=== PATIENT | female | born 1990 | race African-American/Black ===

== ENCOUNTER 2016-12-04 01:51 | Emergency (ER) | payer OTHER ==
[~2016-12-04] VITALS: Ht 149.9 cm; Wt 57.0 kg
[2016-12-04 02:20] LABS: ANION GAP 11 mmol/L (8-16); CALCIUM, TOTAL 8.6 mg/dL (8.8-10.5); CARBON DIOXIDE 26 mmol/L (22-29); CHLORIDE 103 mmol/L (98-107); CREATININE 0.86 mg/dL (0.60-1.30); GLOMERULAR FILTR. RATE CALC > 60 mL/min (>60); POTASSIUM 3.8 mmol/L (3.5-5.1); SODIUM SERUM 140 mmol/L (136-145); UREA NITROGEN, BLOOD 10 mg/dL (7-18)
[2016-12-04 02:26] LABS: ALANINE AMINOTRANSFERASE 21 U/L (12-78); ALBUMIN 3.9 g/dL (3.4-5.0); ASPARTATE AMINOTRANSFERASE 18 U/L (15-37); BILIRUBIN,TOTAL 0.2 mg/dL (0.1-1.0); TOTAL PROTEIN, SERUM 7.7 g/dL (6.4-8.2)
[2016-12-04 02:40] LABS: BASOPHILS % (AUTO) 1.1 % (0.0-2.0); EOSINOPHILS % (AUTO) 2.9 % (1.0-6.0); HEMATOCRIT 40.2 % (36-46); HEMOGLOBIN 13.2 g/dL (12.0-16.0); LYMPHOCYTES % (AUTO) 36.6 % (22.0-44.0); MEAN CORPUSCULAR HGB CONC 32.8 G/dL (31.0-37.0); MEAN CORPUSCULAR VOLUME 91 fL (80-100); MONOCYTES # (AUTO) 0.5 K/uL (0.1-1.0); MONOCYTES % (AUTO) 9.7 % (2.0-9.0); NEUTROPHILS # (AUTO) 2.8 K/uL (1.8-7.7); NEUTROPHILS % (AUTO) 49.7 % (40.0-70.0); PLATELET COUNT (AUTO) 255 K/uL (150-450); RED CELL DISTRIBUTION WIDTH 13.8 % (11.5-14.5); WHITE BLOOD COUNT (AUTO) 5.6 K/uL (4.5-11.0)
[2016-12-04 02:49] LABS: SALICYLATE < 2.8 mg/dL (2.8-20.0)
[2016-12-04 03:06] LABS: ACETAMINOPHEN < 2 mcg/mL (10-30)
[2016-12-04 03:15] VITALS: BP 126/83
== END 2016-12-04 03:19 | disposition home or self-care (01) ==
LOC: EMS 01:53
DX: F10.129 Alcohol abuse with intoxication, unspecified (principal); F69 Unspecified disorder of adult personality and behavior; F17.210 Nicotine dependence, cigarettes, uncomplicated; Y90.6 Blood alcohol level of 120-199 mg/100 ml
CPT/HCPCS: 36415; 80053; 84703; 85025; 99284; 99406; G0480; G0481

== ENCOUNTER 2020-07-27 20:21 | Emergency (ER) | payer OTHER ==
[~2020-07-27] VITALS: Ht 149.9 cm; Wt 58.6 kg
[2020-07-27] MEDS ORDERED: ACETAMINOPHEN 500 MG TABLET PO ONE (23:30)
[2020-07-27] MEDS ORDERED: AMOX TR/POT CLAV 875 MG/125 MG TABLET PO ONE (23:30)
[2020-07-27 23:53] VITALS: BP 140/80
== END 2020-07-28 00:04 | disposition home or self-care (01) ==
LOC: EMS 20:21
DX: N63.0 Unspecified lump in unspecified breast (principal)

== ENCOUNTER 2023-11-12 00:06 | Emergency (ER) | payer OTHER ==
[~2023-11-12] VITALS: Ht 149.9 cm; Wt 61.0 kg
[2023-11-12 00:16] VITALS: TEMP 98
[2023-11-12 00:49] LABS: BASOPHILS % (AUTO) 1.1 % (0.0-2.0); EOSINOPHILS % (AUTO) 1.3 % (1.0-6.0); HEMATOCRIT 35.1 % (36-46); HEMOGLOBIN 11.8 g/dL (12.0-16.0); LYMPHOCYTES # (AUTO) 2.5 K/uL (1.0-4.8); LYMPHOCYTES % (AUTO) 36.6 % (22.0-44.0); MEAN CORPUSCULAR HEMOGLOBIN 30.4 pg (26.0-34.0); MEAN CORPUSCULAR HGB CONC 33.5 G/dL (31.0-37.0); MEAN CORPUSCULAR VOLUME 91 fL (80-100); MONOCYTES # (AUTO) 0.5 K/uL (0.1-1.0); MONOCYTES % (AUTO) 7.8 % (2.0-9.0); NEUTROPHILS # (AUTO) 3.7 K/uL (1.8-7.7); NEUTROPHILS % (AUTO) 53.2 % (40.0-70.0); PLATELET COUNT (AUTO) 232 K/uL (150-450); RED BLOOD CELL COUNT(AUTO) 3.86 MIL/uL (4.00-5.20); RED CELL DISTRIBUTION WIDTH 14.3 % (11.5-14.5); WHITE BLOOD COUNT (AUTO) 6.9 K/uL (4.5-11.0)
[2023-11-12 00:57] LABS: ANION GAP 17 mmol/L (8-16); CALCIUM, TOTAL 8.3 mg/dL (8.8-10.5); CARBON DIOXIDE 21 mmol/L (22-29); CHLORIDE 101 mmol/L (98-107); CREATININE 0.77 mg/dL (0.60-1.30); GLOMERULAR FILTR. RATE CALC > 60 mL/min (>60); GLUCOSE,RANDOM 107 mg/dL (70-110); SODIUM SERUM 139 mmol/L (136-145); UREA NITROGEN, BLOOD 12 mg/dL (7-18)
[2023-11-12 01:08] LABS: ALANINE AMINOTRANSFERASE 12 U/L (12-78); ALBUMIN 3.8 g/dL (3.4-5.0); ALKALINE PHOSPHATASE 65 U/L (46-116); ASPARTATE AMINOTRANSFERASE 21 U/L (15-37); BILIRUBIN,TOTAL 0.4 mg/dL (0.1-1.0); HCG,QUANTITATIVE < 1 mIU/mL (0-6); TOTAL PROTEIN, SERUM 7.4 g/dL (6.4-8.2)
[2023-11-12] MEDS: ACETAMINOPHEN 325 MG TABLET PO ONE (01:11)
[2023-11-12 01:12] LABS: TROPONIN I-HIGH SENSITIVITY 4 ng/L (<51)
[2023-11-12] MEDS ORDERED: AMLO5TAB66 PO ×2 (01:53→02:38)
[2023-11-12] MEDS: AmLODIPine BESYLATE 5 MG TABLET PO ONE (02:05)
[2023-11-12] MEDS: KETOROLAC TROMETHAMINE 30 MG/ML VIAL IVP ONE (02:05)
[2023-11-12] MEDS: POTASSIUM CHLORIDE 20 MEQ ER TABLET PO ONE (02:05)
[2023-11-12 02:55] VITALS: BP 161/108; PULSE 78; RESP 16
== END 2023-11-12 02:58 | disposition home or self-care (01) ==
LOC: EMS 00:07
DX: E87.6 Hypokalemia (principal); F10.129 Alcohol abuse with intoxication, unspecified; R07.89 Other chest pain; Z98.890 Other specified postprocedural states
CPT/HCPCS: 99285; 96374; 71045; 80053; 84484; 84702; 85025; 36415; 93005; G0480; J1885

== ENCOUNTER 2023-12-03 12:14 | Emergency (ER) | payer OTHER ==
[~2023-12-03] VITALS: Ht 149.9 cm; Wt 61.8 kg
[~2023-12-03 12:14] MED LIST: AMLO5TAB66 PO
[2023-12-03 12:32] VITALS: BP 126/72; PULSE 102; RESP 18; TEMP 96.6
[2023-12-03 13:04] LABS: EOSINOPHILS % (AUTO) 2.2 % (1.0-6.0); HEMATOCRIT 37.7 % (36-46); HEMOGLOBIN 12.7 g/dL (12.0-16.0); LYMPHOCYTES # (AUTO) 1.7 K/uL (1.0-4.8); LYMPHOCYTES % (AUTO) 33.3 % (22.0-44.0); MEAN CORPUSCULAR HEMOGLOBIN 30.3 pg (26.0-34.0); MEAN CORPUSCULAR HGB CONC 33.8 G/dL (31.0-37.0); MEAN CORPUSCULAR VOLUME 90 fL (80-100); MONOCYTES # (AUTO) 0.4 K/uL (0.1-1.0); MONOCYTES % (AUTO) 8.6 % (2.0-9.0); NEUTROPHILS # (AUTO) 2.8 K/uL (1.8-7.7); NEUTROPHILS % (AUTO) 54.9 % (40.0-70.0); PLATELET COUNT (AUTO) 199 K/uL (150-450); RED CELL DISTRIBUTION WIDTH 13.8 % (11.5-14.5); WHITE BLOOD COUNT (AUTO) 5.2 K/uL (4.5-11.0)
[2023-12-03 13:16] LABS: ANION GAP 13 mmol/L (8-16); CARBON DIOXIDE 23 mmol/L (22-29); CHLORIDE 101 mmol/L (98-107); GLOMERULAR FILTR. RATE CALC > 60 mL/min (>60); GLUCOSE,RANDOM 144 mg/dL (70-110); POTASSIUM 3.7 mmol/L (3.5-5.1); SODIUM SERUM 137 mmol/L (136-145); UREA NITROGEN, BLOOD 13 mg/dL (7-18)
[2023-12-03 13:20] LABS: ALANINE AMINOTRANSFERASE 24 U/L (12-78); ALKALINE PHOSPHATASE 68 U/L (46-116); ASPARTATE AMINOTRANSFERASE 21 U/L (15-37); BILIRUBIN,TOTAL 0.7 mg/dL (0.1-1.0); CREATINE KINASE, TOTAL ONLY 144 U/L (26-192); TOTAL PROTEIN, SERUM 8.4 g/dL (6.4-8.2); TROPONIN I-HIGH SENSITIVITY 4 ng/L (<51)
== END 2023-12-03 20:25 | disposition home or self-care (01) ==
LOC: EMS 12:21
DX: R07.89 Other chest pain (principal); Z98.890 Other specified postprocedural states
CPT/HCPCS: 71045; 80053; 82550; 84484; 84703; 85025; 93005; 99285; 36415-L1; 36415-TC

== ENCOUNTER 2024-03-11 17:57 | Emergency (ER) | payer OTHER ==
[~2024-03-11] VITALS: Ht 149.9 cm; Wt 59.0 kg
[2024-03-11 18:29] VITALS: BP 127/78; PULSE 90; RESP 20; O2SAT 98
[2024-03-11 20:01] LABS: BASOPHILS % (AUTO) 0.9 % (0.0-2.0); EOSINOPHILS % (AUTO) 0.9 % (1.0-6.0); HEMATOCRIT 35.9 % (36-46); HEMOGLOBIN 12.1 g/dL (12.0-16.0); LYMPHOCYTES # (AUTO) 1.7 K/uL (1.0-4.8); LYMPHOCYTES % (AUTO) 24.8 % (22.0-44.0); MEAN CORPUSCULAR HEMOGLOBIN 30.7 pg (26.0-34.0); MEAN CORPUSCULAR HGB CONC 33.6 G/dL (31.0-37.0); MEAN CORPUSCULAR VOLUME 91 fL (80-100); MONOCYTES # (AUTO) 0.5 K/uL (0.1-1.0); MONOCYTES % (AUTO) 7.8 % (2.0-9.0); NEUTROPHILS # (AUTO) 4.6 K/uL (1.8-7.7); NEUTROPHILS % (AUTO) 65.6 % (40.0-70.0); PLATELET COUNT (AUTO) 351 K/uL (150-450); RED BLOOD CELL COUNT(AUTO) 3.92 MIL/uL (4.00-5.20); RED CELL DISTRIBUTION WIDTH 14.4 % (11.5-14.5)
[2024-03-11 20:11] LABS: ANION GAP 10 mmol/L (8-16); CALCIUM, TOTAL 8.8 mg/dL (8.8-10.5); CARBON DIOXIDE 26 mmol/L (22-29); CHLORIDE 100 mmol/L (98-107); CREATININE 0.95 mg/dL (0.60-1.30); GLOMERULAR FILTR. RATE CALC > 60 mL/min (>60); GLUCOSE,RANDOM 160 mg/dL (70-110); POTASSIUM 3.8 mmol/L (3.5-5.1); SODIUM SERUM 136 mmol/L (136-145); UREA NITROGEN, BLOOD 14 mg/dL (7-18)
[2024-03-11 20:21] LABS: TROPONIN I-HIGH SENSITIVITY Less Than 4 ng/L (<51)
[2024-03-11 20:22] LABS: HCG,QUANTITATIVE 1 mIU/mL (0-6)
== END 2024-03-11 21:21 | disposition home or self-care (01) ==
LOC: EMS 17:58
DX: R00.2 Palpitations (principal); T50.995A Adverse effect of other drugs, medicaments and biological substances, initial encounter; Z98.890 Other specified postprocedural states; Y92.89 Other specified places as the place of occurrence of the external cause
CPT/HCPCS: 71045; 80048; 84484; 84702; 85025; 93005; 99285; 36415-L1; 36415-TC

== ENCOUNTER 2025-02-09 18:54 | Emergency (ER) | payer MEDICAID, OTHER ==
[~2025-02-09] VITALS: Ht 149.9 cm; Wt 64.9 kg
[2025-02-09 19:06] VITALS: TEMP 98.1
[2025-02-09] MEDS: ONDANSETRON HCL 4 MG/2 ML VIAL IM ONE (19:39)
[2025-02-09] MEDS: KETOROLAC TROMETHAMINE 60 MG/2 ML VIAL IM ONE (19:39)
[2025-02-09 19:48] LABS: PLATELET COUNT (AUTO) 271 K/uL (150-450); RED BLOOD CELL COUNT(AUTO) 3.79 MIL/uL (4.00-5.20); RED CELL DISTRIBUTION WIDTH 14.1 % (11.5-14.5); WHITE BLOOD COUNT (AUTO) 10.3 K/uL (4.5-11.0)
[2025-02-09 19:58] LABS: CALCIUM, TOTAL 8.6 mg/dL (8.8-10.5); CREATININE 0.65 mg/dL (0.60-1.30); GLOMERULAR FILTR. RATE CALC > 60 mL/min (>60); GLUCOSE,RANDOM 106 mg/dL (70-110); SODIUM SERUM 136 mmol/L (136-145); UREA NITROGEN, BLOOD 8 mg/dL (7-18)
[2025-02-09 20:00] LABS: PLATELET MORPHOLOGY COMMENT LARGE PLTS PRESENT; RBC MORPHOLOGY COMMENT NORMAL RBC MORPH
[2025-02-09 20:09] LABS: LACTIC ACID 2.3 mmol/L (0.4-2.0)
[2025-02-09 20:59] VITALS: BP 99/62; PULSE 99; RESP 18; O2SAT 98
[2025-02-09] MEDS: MECLIZINE HCL 25 MG TABLET PO ONE (21:12)
== END 2025-02-09 21:13 | disposition home or self-care (01) ==
LOC: EMS 18:54
DX: O03.9 Complete or unspecified spontaneous abortion without complication (principal); R10.2 Pelvic and perineal pain; I10 Essential (primary) hypertension; Z98.890 Other specified postprocedural states; Z79.899 Other long term (current) drug therapy; Z3A.22 22 weeks gestation of pregnancy
CPT/HCPCS: 99284; 80048; 83605; 83690; 85025; 36415; 96372; J1885; J1171; J2405